=== PATIENT | male | born 1980 | race African-American/Black ===

== ENCOUNTER 2017-02-15 08:32 | Emergency (ER) | payer OTHER ==
[~2017-02-15] VITALS: Ht 175.3 cm; Wt 86.2 kg
[2017-02-15] MEDS ORDERED: fentaNYL PF VIAL 100 MCG/2 ML VIAL IV PRN (09:00)
[2017-02-15] MEDS ORDERED: ONDANSETRON PF 4 MG/2 ML VIAL. IV ONE (09:00)
[2017-02-15] MEDS ORDERED: IV NORMAL SALINE 1000ML BAG 1,000 ML IV ONE (09:00)
[2017-02-15 09:13] LABS: BASO % 1 % (0-3); EOS % 0 % (0-3); HEMATOCRIT 46.3 % (39.0-53.0); HEMOGLOBIN 16.5 g/dL (13.0-17.5); LYMPH # 1.3 x10^3/uL (1.0-4.8); LYMPH % 15 % (24-48); MEAN CORPUSCULAR HEMOGLOBIN 30 pg (25-35); MEAN CORPUSCULAR HGB CONC 36 g/dL (31-37); MEAN CORPUSCULAR VOLUME 85 fL (79-100); MONO % 5 % (0-9); NEUT % 80 % (31-73); PLATELET COUNT 241 x10^3/uL (140-400); RED BLOOD COUNT 5.42 x10^6/uL (4.30-5.70); RED CELL DISTRIBUTION WIDTH 12.7 % (11.5-14.5); WHITE BLOOD COUNT 8.6 x10^3/uL (4.0-11.0)
[2017-02-15 09:15] LABS: CALCIUM 8.8 mg/dL (8.5-10.1); GFR 103.5; POTASSIUM 3.8 mmol/L (3.5-5.1)
[2017-02-15] MEDS ORDERED: CONTRAST GIVEN MC PRN (09:15)
[2017-02-15] MEDS ORDERED: IOHEXOL 300 MG/ML 75 ML VIAL IV ONE (09:15)
[2017-02-15 09:19] LABS: TOTAL BILIRUBIN 0.3 mg/dL (0.2-1.0)
--- NOTE | 2017-02-15 09:20 | PHYS DOC ---
Past Medical History Past Medical History: No Pertinent History Past Surgical History: No Surgical History Alcohol Use: Occasionally Drug Use: None Adult General Chief Complaint Chief Complaint: ABDOMINAL PAIN HPI HPI Patient is a 36 year old male presents to the emergency department stating that he is having generalized abdominal pain with nausea and vomiting and diarrhea since Tuesday. Patient states within the last 24 hours he believes that he has vomited approximately 8 times. He does state that there has been some blood in the mucus in which she has vomited. He also states that he's had approximately 8-9 diarrhea stools within the last 24 hours as well. He denies any blood being in the stools. Patient also states that he has a history of drinking alcohol although he is denies drinking within the last few days. Patient does state that he attempted to eat a cheeseburger and malay fries last night although he did throw up back up. He states he's been having some fevers as well he states is broken out in a sweat and has become dizzy. Patient has not taken anything for pain and discomfort at this time. He denies any previous history of abdominal pain. Review of Systems Review of Systems Constitutional: Denies fever or chills [] Eyes: Denies change in visual acuity, redness, or eye pain [] HENT: Denies nasal congestion or sore throat [] Respiratory: Denies cough or shortness of breath [] Cardiovascular: No additional information not addressed in HPI [] GI: abdominal pain, nausea, vomiting, and diarrhea [] : Denies dysuria or hematuria [] Musculoskeletal: Denies back pain or joint pain [] Integument: Denies rash or skin lesions [] Neurologic: Denies headache, focal weakness or sensory changes [] Endocrine: Denies polyuria or polydipsia [] Current Medications Current Medications Current Medications Medications (Trade) Dose Ordered Sig/Sonali Start Time Stop Time Status Last Admin Dose Admin Fentanyl Citrate (Fentanyl 2ml Vial) 25 mcg 1X ONCE 02/15/17 11:15 02/15/17 11:16 DC 02/15/17 11:33 25 MCG Info (Do NOT chart on this entry -- for MONITORING) 1 each PRN DAILY PRN 02/15/17 09:15 02/17/17 09:14 Iohexol (Omnipaque 300 Mg/ml) 75 ml 1X ONCE 02/15/17 09:15 02/15/17 09:16 DC 02/15/17 09:17 75 ML Ondansetron HCl (Zofran) 4 mg 1X ONCE 02/15/17 09:00 02/15/17 09:01 DC 02/15/17 09:10 4 MG Sodium Chloride 1,000 ml @ 1,000 mls/hr 1X ONCE 02/15/17 09:00 02/15/17 09:59 DC Allergies Allergies Allergies Coded Allergies Type Severity Reaction Last Updated Verified No Known Drug Allergies 04/25/15 No Physical Exam Physical Exam Constitutional: Well developed, well nourished, no acute distress, non-toxic appearance. [] HENT: Normocephalic, atraumatic, bilateral external ears normal, oropharynx moist, no oral exudates, nose normal. [] Eyes: PERRLA, EOMI, conjunctiva normal, no discharge. [] Neck: Normal range of motion, no tenderness, supple, no stridor. [] Cardiovascular:Heart rate regular rhythm, no murmur [] Lungs & Thorax: Bilateral breath sounds clear to auscultation [] Abdomen: Bowel sounds hypoactive, soft, generalized tenderness, no masses, no pulsatile masses. No rebound tenderness noted no guarding. Skin: Warm, dry, no erythema, no rash. [] Back: No tenderness Extremities: No tenderness, no cyanosis, no clubbing, ROM intact, no edema. [] Neurologic: Alert and oriented X 3, normal motor function, normal sensory function, no focal deficits noted. [] Psychologic: Affect normal, judgement normal, mood normal. [] Current Patient Data Vital Signs Vital Signs Date Time Temp Pulse Resp B/P (MAP) Pulse Ox O2 Delivery O2 Flow Rate FiO2 02/15/17 11:33 18 98 Room Air 02/15/17 08:43 97.9 68 147/91 (109) 97.9 Lab Values Laboratory Tests Test 02/15/17 08:45 02/15/17 10:30 White Blood Count 8.6 x10^3/uL (4.0-11.0) Red Blood Count 5.42 x10^6/uL (4.30-5.70) Hemoglobin 16.5 g/dL (13.0-17.5) Hematocrit 46.3 % (39.0-53.0) Mean Corpuscular Volume 85 fL (79-100) Mean Corpuscular Hemoglobin 30 pg (25-35) Mean Corpuscular Hemoglobin Concent 36 g/dL (31-37) Red Cell Distribution Width 12.7 % (11.5-14.5) Platelet Count 241 x10^3/uL (140-400) Neutrophils (%) (Auto) 80 % (31-73) H Lymphocytes (%) (Auto) 15 % (24-48) L Monocytes (%) (Auto) 5 % (0-9) Eosinophils (%) (Auto) 0 % (0-3) Basophils (%) (Auto) 1 % (0-3) Neutrophils # (Auto) 6.8 x10^3uL (1.8-7.7) Lymphocytes # (Auto) 1.3 x10^3/uL (1.0-4.8) Monocytes # (Auto) 0.4 x10^3/uL (0.0-1.1) Eosinophils # (Auto) 0.0 x10^3/uL (0.0-0.7) Basophils # (Auto) 0.0 x10^3/uL (0.0-0.2) Sodium Level 144 mmol/L (136-145) Potassium Level 3.8 mmol/L (3.5-5.1) Chloride Level 105 mmol/L (98-107) Carbon Dioxide Level 32 mmol/L (21-32) Anion Gap 7 (6-14) Blood Urea Nitrogen 9 mg/dL (8-26) Creatinine 1.0 mg/dL (0.7-1.3) Estimated GFR (Cockcroft-Gault) 103.5 BUN/Creatinine Ratio 9 (6-20) Glucose Level 114 mg/dL (70-99) H Calcium Level 8.8 mg/dL (8.5-10.1) Total Bilirubin 0.3 mg/dL (0.2-1.0) Aspartate Amino Transferase (AST) 21 U/L (15-37) Alanine Aminotransferase (ALT) 39 U/L (16-63) Alkaline Phosphatase 85 U/L (46-116) Total Protein 8.0 g/dL (6.4-8.2) Albumin 4.0 g/dL (3.4-5.0) Albumin/Globulin Ratio 1.0 (1.0-1.7) Amylase Level 67 U/L (25-115) Lipase 89 U/L (73-393) Ethyl Alcohol Level < 10 mg/dL (0-10) Urine Collection Type Unknown Urine Color Yellow Urine Clarity Cloudy Urine pH 8.5 Urine Specific Jbphh >=1.030 Urine Protein Negative mg/dL (NEG-TRACE) Urine Glucose (UA) Negative mg/dL (NEG) Urine Ketones (Stick) Negative mg/dL (NEG) Urine Blood Negative (NEG) Urine Nitrite Negative (NEG) Urine Bilirubin Negative (NEG) Urine Urobilinogen Dipstick 0.2 mg/dL (0.2 mg/dL) Urine Leukocyte Esterase Negative (NEG) Urine RBC 0 /HPF (0-2) Urine WBC 0 /HPF (0-4) Urine Squamous Epithelial Cells Occ /LPF Urine Amorphous Sediment Present /HPF Urine Bacteria 0 /HPF (0-FEW) Laboratory Tests 02/15/17 08:45 Laboratory Tests 02/15/17 08:45 EKG EKG [] Radiology/Procedures Radiology/Procedures [][place] [id number] IMAGING REPORT Signed PATIENT: ROSY PERRY ACCOUNT: [id number] : 1980 LOCATION: ER AGE: 36 SEX: M EXAM STATUS: REG ER ORD. PHYSICIAN: LISE DAILEY APRN REASON: sharp pain under left ribs PROCEDURE: CHEST PA & LATERAL INDICATION: sharp pain under left ribs COMPARISON: None. FINDINGS: 2 view of chest obtained. No focal airspace consolidation. Mediastinal contour is unremarkable. No gross osseous destructive lesion. IMPRESSION: No focal airspace consolidation or edema. DICTATED and SIGNED BY: EMILIA SINGH MD DATE: 02/15/17 1144 CC: LISE DAILEY APRN; UNKNOWN PCP NAME ~ [address] [id number] IMAGING REPORT Signed PATIENT: ROSY PERRY ACCOUNT: [id number] : 1980 LOCATION: ER AGE: 36 SEX: M EXAM STATUS: REG ER ORD. PHYSICIAN: LISE DAILEY APRN REASON: generalized abdominal pain with V/D PROCEDURE: CT ABD PELV W/ IV CONTRST ONLY INDICATION: Abdominal pain COMPARISON: None. TECHNIQUE: Axial CT images were obtained through the abdomen and pelvis with intravenous contrast. Coronal reformations were processed. FINDINGS: Abdomen: Chest Base: Partially imaged without gross abnormality. Vessels: No abdominal aortic aneurysm. Liver/Biliary: No intrahepatic biliary duct dilation. Pancreas: No gross abnormality. Spleen: Normal. Kidneys/Adrenal: No hydronephrosis. 12 mm left adrenal nodule. GI: No free air. No bowel dilation to suggest obstruction. The appendix may be partially seen and is small in caliber. No right lower quadrant inflammatory changes. Pelvis: Bladder: Partially distended without gross abnormality. There are multiple disc protrusions within the lumbar spine. IMPRESSION: 1. No evidence of bowel obstruction or hydronephrosis. 2. Left adrenal nodule is visualized. Indeterminate on this examination but typically benign in a patient of this age unless family history or risk factors for neoplasm. If the patient does have risk factors adrenal protocol MRI can better evaluate. PQRS Compliance Statement: One or more of the following individualized dose reduction techniques were utilized for this examination: 1. Automated exposure control 2. Adjustment of the mA and/or kV according to patient size 3. Use of iterative reconstruction technique DICTATED and SIGNED BY: EMILIA SINGH MD DATE: 02/15/17 0940 CC: LISE DAILEY APRN; UNKNOWN PCP NAME ~ Course & Med Decision Making Course & Med Decision Making Pertinent Labs and Imaging studies reviewed. (See chart for details) Patient's CBC, amylase lipase, CMP, UA, alcohol level, chest x-ray are within normal limits. CT scan of the abdomen and pelvis shows a left adrenal nodule. Patient was provided with these results. It is recommended to follow-up for an outpatient MRI in regards to the left adrenal nodule. Patient had been provided with fentanyl here in the emergency department. This did control his pain. He was provided with IV fluids and Zofran. He has had no vomiting while in the emergency department. He will be discharged home with Zofran. He will also be provided with Bentyl in which she can take at home. Patient will be discharged home in stable condition signs symptoms to return back to emergency department as been provided. Patient was encouraged to follow-up with the primary care physician within the next week. Patient agrees with discharge instructions treatment regimens and follow-up recommendations. [] Dragon Disclaimer Dragon Disclaimer This electronic medical record was generated, in whole or in part, using a voice recognition dictation system. Departure Departure Impression: Primary Impression: Abdominal pain Additional Impression: Vomiting and diarrhea Disposition: 01 HOME, SELF-CARE Condition: STABLE Referrals: UNKNOWN PCP NAME (PCP) Patient Instructions: Abdominal Pain (Nonspecific), Diarrhea, [id number], Diet for Diarrhea, Adult, Nausea and Vomiting, [id number] Additional Instructions: Your CT scan showed a left adrenal nodule. Please follow-up with your primary care physician for further evaluation that may include an MRI. Your CBC, CMP, urinalysis and chest x-ray was normal. Medications as prescribed. Clear liquid diet for the next 24 hours. Follow-up with your primary care physician within the next week. Return back to emergency prior signs and symptoms that become worse. Scripts Dicyclomine Hcl (BENTYL) 10 Mg Capsule 1 CAP PO TID Y for PAIN, #90 CAP Prov: LISE DAILEY APRN 02/15/17 Ondansetron (ZOFRAN ODT) 4 Mg Tab.rapdis 1 TAB SL Q8HRS, #10 TAB Prov: LISE DAILEY APRN 02/15/17 Problem Qualifiers LISE DAILEY APRN Feb 15, 2017 09:20
--- NOTE | 2017-02-15 09:51 | RAD ---
INDICATION: Abdominal pain COMPARISON: None. TECHNIQUE: Axial CT images were obtained through the abdomen and pelvis with intravenous contrast. Coronal reformations were processed. FINDINGS: Abdomen: Chest Base: Partially imaged without gross abnormality. Vessels: No abdominal aortic aneurysm. Liver/Biliary: No intrahepatic biliary duct dilation. Pancreas: No gross abnormality. Spleen: Normal. Kidneys/Adrenal: No hydronephrosis. 12 mm left adrenal nodule. GI: No free air. No bowel dilation to suggest obstruction. The appendix may be partially seen and is small in caliber. No right lower quadrant inflammatory changes. Pelvis: Bladder: Partially distended without gross abnormality. There are multiple disc protrusions within the lumbar spine. IMPRESSION: 1. No evidence of bowel obstruction or hydronephrosis. 2. Left adrenal nodule is visualized. Indeterminate on this examination but typically benign in a patient of this age unless family history or risk factors for neoplasm. If the patient does have risk factors adrenal protocol MRI can better evaluate. PQRS Compliance Statement: One or more of the following individualized dose reduction techniques were utilized for this examination: 1. Automated exposure control 2. Adjustment of the mA and/or kV according to patient size 3. Use of iterative reconstruction technique
[2017-02-15 10:59] LABS: BILIRUBIN,URINE NEGATIVE (NEG); GLUCOSE,URINE NEGATIVE (NEG); NITRITE,URINE NEGATIVE (NEG); PH,URINE 8.5; PROTEIN,URINE NEGATIVE (NEG-TRACE); UROBILINOGEN,URINE 0.2 mg/dL (0.2 mg/dL)
[2017-02-15] MEDS ORDERED: fentaNYL PF VIAL 100 MCG/2 ML VIAL IV ONE (11:15)
[2017-02-15 11:22] LABS: BACTERIA,URINE 0 /HPF (0-FEW); RBC,URINE 0 /HPF (0-2); SQUAMOUS EPITHELIAL CELL,UR OCC /LPF; WBC,URINE 0 /HPF (0-4)
--- NOTE | 2017-02-15 11:48 | RAD ---
INDICATION: sharp pain under left ribs COMPARISON: None. FINDINGS: 2 view of chest obtained. No focal airspace consolidation. Mediastinal contour is unremarkable. No gross osseous destructive lesion. IMPRESSION: No focal airspace consolidation or edema.
[2017-02-15] MEDS ORDERED: DICY10CA53 PO (11:58)
[2017-02-15] MEDS ORDERED: ONDA4TAB10 SL (11:58)
[2017-02-15 12:07] VITALS: BP 120/80
== END 2017-02-15 12:15 | disposition home or self-care (01) ==
LOC: ER 08:32
DX: R10.84 Generalized abdominal pain (principal); R11.2 Nausea with vomiting, unspecified; R19.7 Diarrhea, unspecified; E27.8 Other specified disorders of adrenal gland; R50.9 Fever, unspecified; R42 Dizziness and giddiness; R61 Generalized hyperhidrosis
CPT/HCPCS: 36415; 71020; 74177; 80053; 81001; 82150; 83690; 85027; 96374; 96375; 96376; 99285; G0480; J2405; J3010; Q9967